=== PATIENT | female | born 1990 | race Caucasian/White ===

== ENCOUNTER 2016-05-07 21:05 | Emergency (ER) | payer OTHER ==
[~2016-05-07 21:05] MED LIST: COLACE 100MG C100 MG PO
[2016-10-21] MEDS ORDERED: NORCO 5-325 TA1 EACH PO (14:33)
== END 2016-05-07 22:17 | disposition home or self-care (01) ==
LOC: ER1 21:05
DX: Z53.21 Procedure and treatment not carried out due to patient leaving prior to being seen by health care provider (principal)

== ENCOUNTER → 2020-03-01 | Outpatient (CLI) | payer OTHER ==
[~2020-03-01] MED LIST changes: +GLUCOPHAGE1000 MG PO; +IBUPROFEN800 MG PO; +IRON325 M1 PO; +NORCO 5-325 TA1 EACH PO
== END ==
LOC: EMI 13:00
DX: G37.9 Demyelinating disease of central nervous system, unspecified (principal); R90.89 Other abnormal findings on diagnostic imaging of central nervous system
CPT/HCPCS: 70551; 72141

== ENCOUNTER 2020-11-05 20:30 | Emergency (ER) | payer OTHER ==
[2020-11-05 21:42] LABS: RED BLOOD COUNT 4.81 M/UL (4.00-5.10)
[2020-11-05 22:01] LABS: BUN/CREATININE RATIO 12 (0-10)
== END 2020-11-05 22:12 | disposition left against medical advice (07) ==
LOC: ER1 20:30
PROVIDERS: Physician Assistant
DX: M79.89 Other specified soft tissue disorders (principal); Z90.49 Acquired absence of other specified parts of digestive tract
CPT/HCPCS: 80053; 83735; 83880; 84703; 85025; 99283